=== PATIENT | female | born 1985 | race Caucasian/White ===

== ENCOUNTER 2017-01-16 20:45 | Emergency (ER) | payer OTHER ==
--- NOTE | 2017-01-16 20:52 | ED Physician Documentation ---
PD HPI SKIN - Stated complaint Stated Complaint: FACE SWELLING - History obtained from History obtained from: Patient - History of Present Illness Timing - duration: Days Timing - details: Gradual onset, Still present Location: Face (she has had some congestion and is awakening with crusting both eyes for several days. Today with pain and pressure right maxillary area. Tender adenopathy right neck and preauricular.) Quality / character: Burning Review of Systems Constitutional: denies: Fever, Chills Eyes: reports: Discharge, Irritation Ears: denies: Ear pain Nose: reports: Sinus pressure / pain Throat: denies: Dental pain / toothache, Oral lesions / sores, Sore throat Cardiac: denies: Chest pain / pressure Respiratory: denies: Dyspnea, Cough GI: denies: Vomiting, Diarrhea Neurologic: denies: Headache PD PAST MEDICAL HISTORY - Past Medical History Cardiovascular: None Respiratory: None Endocrine/Autoimmune: None GI: None : Other HEENT: None Psych: None Musculoskeletal: None Derm: None - Past Surgical History Past Surgical History: Yes - Present Medications Home Medications: Ambulatory Orders Medication Instructions Recorded Confirmed Norgestimate-Ethinyl Estradiol 1 each PO DAILY 09/10/15 01/16/17 [Ortho-Cyclen] Amoxicillin 500 mg PO TID #20 capsule 01/16/17 Dexamethasone [Decadron] 4 mg PO DAILY #5 tablet 01/16/17 - Allergies Allergies/Adverse Reactions: Allergies Allergy/AdvReac Type Severity Reaction Status Date / Time No Known Drug Allergies Allergy Verified 01/16/17 20:54 - Social History Does the pt smoke?: Yes Smoking Status: Current some day smoker Does the pt drink ETOH?: Yes Does the pt have substance abuse?: No - Immunizations Immunizations are current?: No Immunizations: TDAP >10years/unknown - POLST Patient has POLST: No PD ED PE NORMAL - Vitals Vital signs reviewed: Yes - General General: Alert and oriented X 3, Well developed/nourished - HEENT HEENT: Ears normal, Moist mucous membranes, Pharynx benign - Neck Neck: Supple, no meningeal sign, Other (right preauricular and anterior cervical adenopathy that is tender. Some tenderness right maxillary to percussion. 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 ), d/w patient Departure - Departure Disposition: Home, Self Care Clinical Impression: Sinusitis Qualifiers: Sinusitis location: maxillary Chronicity: acute Recurrence: non-recurrent Qualified Code(s): J01.00 - Acute maxillary sinusitis, unspecified Condition: Stable Record reviewed to determine appropriate education?: Yes Instructions: ED Sinusitis Abx Tx Follow-Up: Fabricio Moon MD [Primary Care Provider] - Prescriptions: Amoxicillin 500 mg PO TID #20 capsule Dexamethasone [Decadron] 4 mg PO DAILY #5 tablet Comments: Presume an infection of the sinus. Amoxicillin three times daily for a week. Decadron daily for 5 more days for inflammation. Continue allergy med daily at home. You can use the antibiotic eye drops 3-4 times daily to help clear that part of it too. Discharge Date/Time: 01/16/17 22:09
[2017-01-16] MEDS ORDERED: SULFACETAMIDE 10% OPHTH DROPS EACHEYE STA (21:12)
[2017-01-16] MEDS ORDERED: AMOXICILLIN 250 MG CAPSULE PO STA (21:12)
[2017-01-16] MEDS ORDERED: DEXAMETHASONE 10 MG/ML VIAL PO STA (21:12)
[2017-01-16] MEDS ORDERED: DEXAMETHASONE 10 MG/ML VIAL ONE (21:29)
[2017-01-16] MEDS ORDERED: AMOXICILLIN 250 MG CAPSULE PO ONE (21:29)
[2017-01-16] MEDS ORDERED: CHERRY SYRUP 10 ML UDC PO ONE (21:30)
[2017-01-16] MEDS ORDERED: SULFACETAMIDE 10% OPHTH DROPS ONE (21:30)
[2017-01-16 21:37] VITALS: BP 130/83
== END 2017-01-16 22:09 | disposition home or self-care (01) ==
LOC: ED 20:45
DX: J01.00 Acute maxillary sinusitis, unspecified (principal); F17.200 Nicotine dependence, unspecified, uncomplicated
CPT/HCPCS: 99283; A9270